=== PATIENT | female | born 1975 | race Caucasian/White ===

== ENCOUNTER 2017-06-17 10:41 | Emergency (ER) | payer SELFPAY ==
[2017-06-17 10:50] VITALS: BP 116/70
--- NOTE | 2017-06-17 11:11 | Emergency Department Report ---
HPI - General Chief Complaint: Medical Clearance Time Seen by Provider: 06/17/17 10:55 - HPI HPI: Room 21 The patient is a 42-year-old female presented with a chief complaint of blood exposure. 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 The patient states she has started an IV and went to flush the IV with a syringe of normal saline but after she attempted to look up syringe she realized that Was still attached. The patient states Some minorly brought the cap back to her mouth to remove with her teeth and this is when she realized there was already blood on the endcap. The patient states she immediately spit the blood out but continued working cardiac arrest. The patient states at the hospital she drank orange juice Location: [see above] Duration: [see above] Quality: [see above] Severity: [see above] Modifying factors: [see above] Context: [see above] Mode of transportation: [not driving] ED Past Medical Hx - Past Medical History Previous Medical History?: No Additional medical history: Insomnia, Anemia - Surgical History Past Surgical History?: No Additional Surgical History: gastric bypass - Family History Family history: no significant - Social History Smoking Status: Never Smoker Substance Use Type: None ED Review of Systems ROS: Stated complaint: EXPOSURE Other details as noted in HPI Comment: All other systems reviewed and negative Constitutional: denies: chills, fever Eyes: denies: eye pain, eye discharge, vision change ENT: denies: ear pain, throat pain Respiratory: denies: cough, shortness of breath, wheezing Cardiovascular: denies: chest pain, palpitations Endocrine: no symptoms reported Gastrointestinal: denies: abdominal pain, nausea, diarrhea Genitourinary: denies: urgency, dysuria, discharge Musculoskeletal: denies: back pain, joint swelling, arthralgia Skin: denies: rash, lesions Neurological: denies: headache, weakness, paresthesias Psychiatric: denies: anxiety, depression Hematological/Lymphatic: denies: easy bleeding, easy bruising Physical Exam - Physical Exam Vital Signs: Vital Signs 06/17/17 10:45 Temperature 98.9 F Pulse Rate 74 Respiratory 16 Rate Blood Pressure 116/70 O2 Sat by Pulse 96 Oximetry Physical Exam: GENERAL: The patient is well-developed well-nourished female sitting on stretcher not appearing to be in acute distress. [] HEENT: Normocephalic. Atraumatic. Extraocular motions are intact. Patient has moist mucous membranes. Oropharynx clear. No open lesions NECK: Supple. Trachea midline CHEST/LUNGS: There is no respiratory distress noted. SKIN: There is no rash. There is no edema. There is no diaphoresis. NEURO: The patient is awake, alert, and oriented. The patient is cooperative. The patient has normal speech and gait. MUSCULOSKELETAL: There is no evidence of acute injury. ED Course Vital Signs 06/17/17 10:45 Temperature 98.9 F Pulse Rate 74 Respiratory 16 Rate Blood Pressure 116/70 O2 Sat by Pulse 96 Oximetry - Consultations Consultation #1: 06/17/17 11:01 Infectious disease consulted 06/17/17 11:[address] Mendez (infectious disease)- recommends patient receive HIV testing today including hepatitis C serology, hepatitis B surface antigen, surface antibody and core antibody and then had the repeated in 6 weeks, 3 months and 6 months. Patient should be started on Truvada once daily 28 days ED Medical Decision Making - Differential Diagnosis blood exposure Critical care attestation.: If time is entered above; I have spent that time in minutes in the direct care of this critically ill patient, excluding procedure time. ED Disposition Clinical Impression: Exposure to blood Disposition: ELOPED Is pt being admited?: No Does the pt Need Aspirin: No Condition: Stable Instructions: Postexposure Prophylaxis (ED) Additional Instructions: Return to the emergency department immediately should you develop worsening symptoms, fever, inability to tolerate food or liquid or any other concerns. Time of Disposition: 11:31 (patient eloped to go to [facility] for evaluation)
== END 2017-06-17 11:19 | disposition left against medical advice (07) ==
LOC: ED 10:41
DX: Z53.21 Procedure and treatment not carried out due to patient leaving prior to being seen by health care provider (principal)